=== PATIENT | female | born 1930 | race Caucasian/White ===

== ENCOUNTER 2018-11-02 15:00 | Inpatient (IN) | payer MEDICARE, MEDICAID ==
[~2018-11-02] VITALS: Ht 157.5 cm; Wt 73.9 kg
[2018-11-02] MEDS ORDERED: ALBUTEROL (0.083%) 2.5MG/3ML NEB HHN STA (16:27)
[2018-11-02] MEDS ORDERED: LEVOFLOXACIN 500MG PREMIX 100 ML IV ONE (16:30)
[2018-11-02 16:39] LABS: BASOPHILS % 0.4 % (0.0-2.0); EOSINOPHILS % 4.2 % (0.0-5.0); HEMATOCRIT. 37.8 % (36.0-48.0); LYMPHOCYTES % 27.5 % (20.0-50.0); MEAN CORPUSCULAR HEMOGLOBIN 31.8 pg (28.0-32.0); MEAN CORPUSCULAR VOLUME 92.5 fL (81.0-99.0); MEAN PLATELET VOLUME 6.5 fl (7.4-10.4); MONOCYTES % 7.2 % (2.0-8.0); NEUTROPHILS % 60.7 % (40.0-76.0); PLATELET 279 x1000/uL (130-400); RED BLOOD CELL COUNT 4.09 mill/uL (4.2-5.4)
[2018-11-02 16:43] LABS: CHLORIDE 105 mEq/L (98-107)
[2018-11-02] MEDS ORDERED: ENALAPRIL 2.5MG/2ML VIAL 2ML IV ONE (16:45)
[2018-11-02 16:47] LABS: INR 1.1; PARTIAL THROMBOPLASTIN TIME 27.6 sec (23.4-31.0); PROTHROMBIN TIME 10.8 sec (9.6-11.0)
[2018-11-02 17:11] LABS: CLARITY URINE CLOUDY (CLEAR); COLOR URINE YELLOW (YELLOW); KETONES URINE NEGATIVE (NEGATIVE); LEUKOCYTE ESTERASE URINE 3+ (NEGATIVE); NITRITE URINE NEGATIVE (NEGATIVE); OCCULT BLOOD URINE NEGATIVE (NEGATIVE); PH URINE 5.5 (4.5-8.0); PROTEIN URINE NEGATIVE (NEGATIVE); SPECIFIC GRAVITY URINE 1.008 (1.005-1.030); UROBILINOGEN URINE 0.2 E.U./dL (0.2-1.0)
[2018-11-02] MEDS ORDERED: HALOPERIDOL LACTATE 5MG/ML VIAL IM ONE (20:00)
[2018-11-02 22:30] VITALS: BP 146/60
[2018-11-02] MEDS ORDERED: HALOPERIDOL LACTATE 5MG/ML VIAL IM PRN (23:15)
[2018-11-02] MEDS ORDERED: HYDR-4133 PO (23:43)
[2018-11-02] MEDS ORDERED: HYDR-4001 PO (23:43)
[2018-11-02] MEDS ORDERED: MULT-1146 PO (23:43)
[2018-11-02] MEDS ORDERED: GABA-531 PO (23:43)
[2018-11-02] MEDS ORDERED: LEVO125T8 PO (23:43)
[2018-11-02] MEDS ORDERED: LACT1CAP60 PO (23:43)
[2018-11-02] MEDS ORDERED: ASPI-986 PO (23:43)
[2018-11-02] MEDS ORDERED: OMEP1CAP25 PO (23:43)
[2018-11-02] MEDS ORDERED: ACET-2178 PO (23:43)
[2018-11-02] MEDS ORDERED: LIP40 MT (23:43)
[2018-11-02] MEDS ORDERED: DOCU100T PO (23:43)
[2018-11-02] MEDS ORDERED: CLONIDINE 0.1MG TABLET PO PRN (23:45)
[2018-11-02] MEDS ORDERED: IPRATROPIUM/ALBUTEROL 0.5-3(2.5)MG/3ML NEB INH PRN (23:45)
[2018-11-02] MEDS ORDERED: DOCUSATE SODIUM 100MG CAPSULE PO PRN (23:45)
[2018-11-02] MEDS ORDERED: MAGNESIUM/ALUMINUM HYDROXIDE/SIMETHICONE 30ML UDC PO PRN (23:45)
[2018-11-02] MEDS ORDERED: HYDROCODONE/ACETAMINOPHEN 5/325MG TABLET PO PRN (23:45)
[2018-11-02] MEDS ORDERED: ONDANSETRON HCL 4MG/2ML INJ IV PRN (23:45)
[2018-11-03] VITALS (7 sets, daily range): BP systolic 119–190; BP diastolic 52–86
[2018-11-03] MEDS: GUAIFENESIN 200MG/10ML SUGAR FREE UDC PO PRN (02:11)
[2018-11-03 07:19] LABS: BASOPHILS % 0.5 % (0.0-2.0); HEMATOCRIT. 34.5 % (36.0-48.0); HEMOGLOBIN. 11.8 g/dL (12.0-16.0); LYMPHOCYTES % 25.2 % (20.0-50.0); MEAN CORPUSCULAR HEMOGLOBIN 31.3 pg (28.0-32.0); MEAN CORPUSCULAR VOLUME 91.7 fL (81.0-99.0); MEAN PLATELET VOLUME 6.6 fl (7.4-10.4); NEUTROPHILS % 64.3 % (40.0-76.0); PLATELET 258 x1000/uL (130-400); RED BLOOD CELL COUNT 3.76 mill/uL (4.2-5.4); RED CELL DISTRIBUTION WIDTH 14.8 % (11.6-14.6)
[2018-11-03 07:33] LABS: CHLORIDE 109 mEq/L (98-107)
[2018-11-03 07:42] LABS: PHOSPHORUS 2.3 mg/dL (2.5-4.9)
[2018-11-03] MEDS: ENOXAPARIN 40MG/0.4ML SYR SUBCUT SCH (09:15)
[2018-11-03] MEDS: LEVOFLOXACIN 250MG PREMIX 50 ML IV SCH (13:50)
[2018-11-03] MEDS: HYDRALAZINE HCL 10MG TABLET PO SCH ×2 (13:55→20:40)
[2018-11-03] MEDS ORDERED: LEVOFLOXACIN 500MG PREMIX 100 ML IV SCH (17:00)
[2018-11-03] MEDS: IPRATROPIUM/ALBUTEROL 0.5-3(2.5)MG/3ML NEB HHN SCH (20:15)
[2018-11-03] MEDS: AMLODIPINE 5MG TABLET PO SCH (20:40)
[2018-11-03 22:03] LABS: T4 FREE 1.04 ng/dL (0.76-1.46)
[2018-11-04] VITALS: BP 137/75
[2018-11-04] MEDS: IPRATROPIUM/ALBUTEROL 0.5-3(2.5)MG/3ML NEB HHN SCH ×3 (01:58→21:54)
[2018-11-04 04:00] VITALS: BP 128/76
[2018-11-04] MEDS: HYDRALAZINE HCL 10MG TABLET PO SCH ×3 (05:49→21:17)
[2018-11-04 06:30] LABS: BASOPHILS % 0.5 % (0.0-2.0); EOSINOPHILS % 2.5 % (0.0-5.0); HEMOGLOBIN. 12.5 g/dL (12.0-16.0); LYMPHOCYTES % 27.8 % (20.0-50.0); MEAN CORPUSCULAR VOLUME 92.1 fL (81.0-99.0); MEAN PLATELET VOLUME 6.4 fl (7.4-10.4); MONOCYTES % 8.4 % (2.0-8.0); NEUTROPHILS % 60.8 % (40.0-76.0); PLATELET 285 x1000/uL (130-400); RED BLOOD CELL COUNT 4.02 mill/uL (4.2-5.4); RED CELL DISTRIBUTION WIDTH 15.3 % (11.6-14.6)
[2018-11-04 06:33] LABS: CHLORIDE 107 mEq/L (98-107)
[2018-11-04 08:00] VITALS: BP 143/69
[2018-11-04] MEDS: AMLODIPINE 5MG TABLET PO SCH ×2 (08:58→21:00)
[2018-11-04] MEDS: ENOXAPARIN 40MG/0.4ML SYR SUBCUT SCH (08:58)
[2018-11-04 12:00] VITALS: BP 116/58
[2018-11-04] MEDS: LEVOFLOXACIN 250MG PREMIX 50 ML IV SCH (12:03)
[2018-11-04 16:00] VITALS: BP 122/69
[2018-11-04] MEDS: LIOTHYRONINE SODIUM 5MCG TABLET PO SCH (18:14)
[2018-11-04 20:00] VITALS: BP 107/45
[2018-11-04] MEDS: GUAIFENESIN 200MG/10ML SUGAR FREE UDC PO PRN (21:29)
[2018-11-05] VITALS (8 sets, daily range): BP systolic 91–155; BP diastolic 51–90
[2018-11-05] MEDS: IPRATROPIUM/ALBUTEROL 0.5-3(2.5)MG/3ML NEB HHN SCH ×4 (02:24→20:50)
[2018-11-05] MEDS: HYDRALAZINE HCL 10MG TABLET PO SCH ×3 (06:10→20:39)
[2018-11-05] MEDS: AMLODIPINE 5MG TABLET PO SCH ×2 (08:31→20:39)
[2018-11-05] MEDS: LIOTHYRONINE SODIUM 5MCG TABLET PO SCH ×2 (08:31→17:17)
[2018-11-05] MEDS: LEVOTHYROXINE SODIUM 125MCG TABLET PO SCH (08:31)
[2018-11-05] MEDS: ENOXAPARIN 40MG/0.4ML SYR SUBCUT SCH (08:32)
[2018-11-05] MEDS: ACETAMINOPHEN 325MG TABLET PO PRN (08:39)
[2018-11-05] MEDS: LEVOFLOXACIN 250MG PREMIX 50 ML IV SCH (11:58)
[2018-11-05] MEDS ORDERED: POTASSIUM CHLORIDE 20MEQ TABLET SR PO NR (18:15)
[2018-11-06] MEDS: IPRATROPIUM/ALBUTEROL 0.5-3(2.5)MG/3ML NEB HHN SCH ×4 (02:35→21:28)
[2018-11-06 04:00] VITALS: BP 136/56
[2018-11-06] MEDS: HYDRALAZINE HCL 10MG TABLET PO SCH ×3 (05:38→21:58)
[2018-11-06] MEDS: GUAIFENESIN 200MG/10ML SUGAR FREE UDC PO PRN (05:45)
[2018-11-06 07:53] VITALS: BP 118/42
[2018-11-06] MEDS: LIOTHYRONINE SODIUM 5MCG TABLET PO SCH ×2 (09:21→16:49)
[2018-11-06] MEDS: AMLODIPINE 5MG TABLET PO SCH ×2 (09:21→21:58)
[2018-11-06] MEDS: LEVOTHYROXINE SODIUM 125MCG TABLET PO SCH (09:21)
[2018-11-06] MEDS: ENOXAPARIN 40MG/0.4ML SYR SUBCUT SCH (09:21)
[2018-11-06 13:01] VITALS: BP 111/62
[2018-11-06] MEDS: LEVOFLOXACIN 250MG TABLET PO SCH (13:15)
[2018-11-06 15:57] VITALS: BP 116/60
[2018-11-06 20:00] VITALS: BP 148/61
[2018-11-07] VITALS: BP 146/58
[2018-11-07] MEDS: GUAIFENESIN 200MG/10ML SUGAR FREE UDC PO PRN (02:25)
[2018-11-07] MEDS: IPRATROPIUM/ALBUTEROL 0.5-3(2.5)MG/3ML NEB HHN SCH ×3 (02:42→14:40)
[2018-11-07 04:00] VITALS: BP 127/58
[2018-11-07] MEDS: HYDRALAZINE HCL 10MG TABLET PO SCH ×3 (05:53→15:05)
[2018-11-07 08:17] VITALS: BP 118/61
[2018-11-07] MEDS: LIOTHYRONINE SODIUM 5MCG TABLET PO SCH (08:39)
[2018-11-07] MEDS: LEVOTHYROXINE SODIUM 125MCG TABLET PO SCH (08:39)
[2018-11-07] MEDS: AMLODIPINE 5MG TABLET PO SCH (08:39)
[2018-11-07] MEDS: ENOXAPARIN 40MG/0.4ML SYR SUBCUT SCH (08:40)
[2018-11-07] MEDS: ACETAMINOPHEN 325MG TABLET PO PRN (09:07)
[2018-11-07] MEDS: LEVOFLOXACIN 250MG TABLET PO SCH (11:50)
[2018-11-07 13:19] VITALS: BP 121/55
[2018-11-07 14:37] VITALS: BP 121/55
== END 2018-11-07 16:05 | DRG 193 ==
LOC: ER 15:25 → EDBEDREQ 16:39 → ENRESERV 20:30 → EDBEDREQTM 20:33 → 7WST 22:15
PROVIDERS: ADMIT Family Medicine Adult Medicine; ATTEND Family Medicine Adult Medicine
DX: J18.0 Bronchopneumonia, unspecified organism (principal); J96.00 Acute respiratory failure, unspecified whether with hypoxia or hypercapnia; N39.0 Urinary tract infection, site not specified; J98.11 Atelectasis; F02.80 Dementia in other diseases classified elsewhere, unspecified severity, without behavioral disturbance, psychotic disturbance, mood disturbance, and anxiety; E03.9 Hypothyroidism, unspecified; R73.03 Prediabetes; I10 Essential (primary) hypertension; G30.9 Alzheimer's disease, unspecified; E78.00 Pure hypercholesterolemia, unspecified; E78.5 Hyperlipidemia, unspecified; M19.90 Unspecified osteoarthritis, unspecified site; Z88.5 Allergy status to narcotic agent
CPT/HCPCS: 36415; 71045; 76700; 80048; 83036; 83520; 83605; 83735; 83880; 84100; 84145; 84439; 84443; 84481; 84484; 86376; 93005; 93306; 94640; 96365; 96366; 96375; 99285; J1630; J1650; J1956; J3490; J7050; J7611; J7620

== ENCOUNTER 2019-06-06 02:11 | Emergency (ER) | payer MEDICARE, MEDICAID ==
[~2019-06-06] VITALS: Ht 157.5 cm; Wt 72.0 kg
[~2019-06-06 02:11] MED LIST: ASPI-986 PO; DOCU100T PO; GABA-531 PO; HYDR-4001 PO; HYDR-4133 PO; LACT1CAP60 PO; LEVO125T8 PO; LIP40 MT; MULT-1146 PO; OMEP1CAP25 PO; TOPUD PO
[2019-06-06 09:01] VITALS: BP 146/76
== END 2019-06-06 09:58 | disposition home or self-care (01) ==
LOC: ER 02:11
DX: J06.9 Acute upper respiratory infection, unspecified (principal); R05 Cough; M19.90 Unspecified osteoarthritis, unspecified site; E78.00 Pure hypercholesterolemia, unspecified; I10 Essential (primary) hypertension; E03.9 Hypothyroidism, unspecified; G30.9 Alzheimer's disease, unspecified; F02.80 Dementia in other diseases classified elsewhere, unspecified severity, without behavioral disturbance, psychotic disturbance, mood disturbance, and anxiety; Z66 Do not resuscitate; Z79.82 Long term (current) use of aspirin; Z88.2 Allergy status to sulfonamides
CPT/HCPCS: 71045; 93005; 99283